=== PATIENT | female | born 1965 | race Caucasian/White ===

== ENCOUNTER → 2022-05-27 | Outpatient (CLI) | payer MEDICARE, OTHER ==
[~2022-05-27] MED LIST: CELEBREX400 MG PO; CYCLOBENZAPRINE10 MG PO; HYDROCODONE-AC1 EAC1 PO; LORATADINE10 MG PO; LOSARTAN POTASS50 MG PO; METOPROLOL SUCC50 MG PO; NEURONTIN800 MG PO; PROAIR HFA8.5 GM INH; PROTONIX 40 MG40 M1 PO; SIMVASTATIN10 MG PO; VORT10TA PO
[2022-05-27 13:59] LABS: BUN/CREATININE RATIO 19 (0-10)
[2022-05-27 14:38] LABS: HEMOGLOBIN 14.8 gm/dl (12.3-15.3); RED BLOOD COUNT 4.55 M/UL (4.00-5.10); WHITE BLOOD COUNT 10.2 K/UL (4.5-11.0)
== END ==
LOC: OPSV2 05-25 08:00 → EDSTATUS 12:30 → OPSV2 12:43
PROVIDERS: Orthopaedic Surgery
DX: Z01.818 Encounter for other preprocedural examination (principal); M87.9 Osteonecrosis, unspecified; E11.9 Type 2 diabetes mellitus without complications; R94.31 Abnormal electrocardiogram [ECG] [EKG]
CPT/HCPCS: 71046; 80048; 83036; 85027; 93005

== ENCOUNTER 2022-06-14 08:11 | Day surgery (SDC) | payer MEDICARE, OTHER ==
[~2022-06-14] VITALS: Ht 165.1 cm; Wt 108.4 kg
[2022-06-14 09:32] LABS: BUN/CREATININE RATIO 17 (0-10)
[2022-06-15] MEDS ORDERED: ASPIR-TRIN325 MG PO (07:28)
[2022-06-15] MEDS ORDERED: HYDROCODON-ACE1 EAC6 PO (07:28)
[2022-06-15 08:56] LABS: HEMOGLOBIN 11.9 gm/dl (12.3-15.3); RED BLOOD COUNT 3.7 M/UL (4.00-5.10); WHITE BLOOD COUNT 13.7 K/UL (4.5-11.0)
== END 2022-06-15 12:16 | disposition home or self-care (01) ==
LOC: OR 08:11 → M/S 08:11 → OR 11:05 → M/S 16:22 → OR 19:00
PROVIDERS: Nurse Practitioner Family; Orthopaedic Surgery
DX: M16.11 Unilateral primary osteoarthritis, right hip (principal); I10 Essential (primary) hypertension; E78.5 Hyperlipidemia, unspecified; E66.9 Obesity, unspecified; E11.9 Type 2 diabetes mellitus without complications; F17.210 Nicotine dependence, cigarettes, uncomplicated; F41.9 Anxiety disorder, unspecified; F32.A Depression, unspecified; Z68.38 Body mass index [BMI] 38.0-38.9, adult; Z79.899 Other long term (current) drug therapy
CPT/HCPCS: 36415; 71045; 73501; 73502; 76000; 80048; 85025; 86850; 86900; 86901; 94640; 94760; 97110-GP-CQ; 97116; 97116-GP-CQ; 97161; 97166; 97535; C1776; J0690; J1100; J1170; J1200; J1644; J1885; J2250; J2274; J2370; J2405; J2704; J2710; J3010; J3475; J7050